=== PATIENT | male | born 1995 | race Caucasian/White ===

== ENCOUNTER 2018-12-27 11:39 | Emergency (ER) | payer OTHER ==
[~2018-12-27] VITALS: Ht 185.4 cm; Wt 119.9 kg
[2018-12-27] MEDS ORDERED: ACETAMINOPHEN 500 MG TAB PO ONE (12:00)
--- NOTE | 2018-12-27 12:30 | REP ---
Head CT without contrast: History: Head trauma, dizziness. Comparison study: No comparison study. CT findings: Bone window settings demonstrate an intact bony calvarium. There is no evidence of skull fracture or incidental bony calvarial lesion. The visualized paranasal sinuses appear clear. No intraorbital abnormality is seen. On soft tissue window setting images; the lateral, third, and fourth ventricles are normal in size and position. Santos-white differentiation pattern is normal above and below the tentorium. There are is no evidence of intracranial hemorrhage. No mass, edema, infarction, or midline shift is seen. No extra-axial fluid collection is appreciated. Impression: Negative noncontrast head CT. Electronically Signed by Chace Turner MD 12/27/2018 12:22 P
[2018-12-27 12:36] LABS: HEMATOCRIT 42.6 % (42.0-52.0); HEMOGLOBIN 14.1 g/dl (13.5-17.5); MEAN CORPUSCULAR HEMOGLOBIN 26.6 pg (27.0-33.0); MEAN CORPUSCULAR HGB CONC 33.1 g/dl (32.0-36.5); MEAN CORPUSCULAR VOLUME 80.4 fl (80.0-96.0); PLATELET COUNT, AUTOMATED 200 10^3/uL (150-450); WHITE BLOOD COUNT 7.5 10^3/uL (4.0-10.0)
--- NOTE | 2018-12-27 12:39 | REP ---
MAXILLOFACIAL CT STUDY WITHOUT CONTRAST: HISTORY: Head, trauma, dizziness, swelling and tenderness the orbit. FINDINGS: Frontal, ethmoidal, sphenoid, and maxillary sinuses are clear. Mastoid aeration is normal and symmetric. Orbital margins appear intact. No facial fracture is appreciated. The nasal bone has an intact appearance. Inferior maxillary spine is intact. The visualized mandible appears intact. No intraorbital hematoma is seen. IMPRESSION: Negative maxillofacial CT study. No facial fractures seen. Electronically Signed by Chace Turner MD 12/27/2018 05:17 P
[2018-12-27 13:01] VITALS: BP 144/70
== END 2018-12-27 13:05 | disposition home or self-care (01) ==
LOC: M ED 11:39
DX: S00.12XA Contusion of left eyelid and periocular area, initial encounter (principal); H11.32 Conjunctival hemorrhage, left eye; W21.11XA Struck by baseball bat, initial encounter; Y92.89 Other specified places as the place of occurrence of the external cause; F17.210 Nicotine dependence, cigarettes, uncomplicated